=== PATIENT | female | born 1980 ===

== ENCOUNTER 2017-02-22 08:00 | Emergency (ER) | payer SELFPAY ==
[2017-02-22 10:28] VITALS: BP 127/89
== END 2017-02-22 11:00 | disposition left against medical advice (07) ==
LOC: ED 08:00
DX: S00.83XA Contusion of other part of head, initial encounter (principal); Z53.21 Procedure and treatment not carried out due to patient leaving prior to being seen by health care provider; W19.XXXA Unspecified fall, initial encounter; Y93.89 Activity, other specified; Y99.8 Other external cause status; Y92.89 Other specified places as the place of occurrence of the external cause